=== PATIENT | female | born 2000 | race Caucasian/White ===

== ENCOUNTER 2018-11-08 09:03 | Outpatient (CLI) | payer OTHER ==
--- NOTE | 2018-11-08 10:08 | ULT ---
FEXAM: Abdomen ultrasound CLINICAL HISTORY: Gastroesophageal reflux disease. COMPARISON: None FINDINGS: Liver: Hepatic parenchyma has a normal echotexture. No hepatic masses or intrahepatic biliary dilatat ion. Contour of the hepatic margin is maintained. Right hepatic lobe measures 13.2 cm Bile ducts: No intrahepatic or extrahepatic biliary dilatation. Gallbladder: No sonographic evidence of cholelithiasis, gallbladder wall thickening or pericholecysti c fluid. Brandt's sign: Negative Pancreas: Pancreatic head is a normal echotexture. Remainder the pancreas is obscured. IVC: Unremarkable Aorta: Unremarkable Right kidney: No hydronephrosis Right kidney measuring 9.7 x 3.5 x 3.9 cm in length. Left kidney: No hydronephrosis. Left kidney measuring 9.6 x 4.8 x 4.2 cm in length Spleen: Normal echotexture. 8.5 cm in maximum dimension. IMPRESSION: Unremarkable abdominal ultrasound.
== END 2018-11-08 09:04 | disposition home or self-care (01) ==
LOC: SCSULT 09:03
PROVIDERS: ATTEND Internal Medicine Gastroenterology
DX: N92.0 Excessive and frequent menstruation with regular cycle (principal); K21.9 Gastro-esophageal reflux disease without esophagitis; K58.9 Irritable bowel syndrome, unspecified; F41.9 Anxiety disorder, unspecified; E73.9 Lactose intolerance, unspecified; R11.0 Nausea
CPT/HCPCS: 76700